=== PATIENT | male | born 1945 | race Caucasian/White ===

== ENCOUNTER 2017-04-22 15:04 | Emergency (ER) | payer OTHER ==
[~2017-04-22] VITALS: Ht 180.3 cm; Wt 66.7 kg
[~2017-04-22 15:04] MED LIST: ACCUNEB SO1.25 MG/1 INH; AMLODIPINE BESY10 MG PO; ASPIR 8181 MG PO; AUGMENTIN 875875 MG PO; AZITHROMYCIN 2250 MG PO; CEFUROXIME250 MG PO; CELEXA20 MG PO; COLACE100 MG PO; COMBIVENT PO; COREG6.25 MG PO; DUONEB 2.5-0.5 M3 ML INH; EFFEXOR 5050 MG/1 T1 PO; IBUPROFEN 200200 M1 PO; IBUPROFEN 400400 M2 PO; ISOSORBIDE MONO30 M1 PO; KLOR-CON 1010 MEQ PO; LASIX 20 MG TAB20 MG PO; LISINOPRIL10 MG PO; MUCINEX TA600 MG/TA2 PO; NEXIUM20 MG PO; NEXIUM40 MG PO; POTASSIUM 25 M25 MEQ PO; PREDNISONE 10 M10 M1 PO; PREDNISONE 10 M10 MG PO; SENNA8.6 MG PO; SIMVASTATIN40 MG PO; SINGULAIR 10 MG10 M1 PO; SYMBICORT160 MCG/4. PO; TESSALON PERLE100 MG PO; TUMS PO; XANAX 0.5 MG0.5 MG PO
[2017-04-22] MEDS ORDERED: TUMS PO (15:30)
[2017-04-22] MEDS ORDERED: NEXIUM40 MG PO (15:30)
[2017-04-22] MEDS ORDERED: AMOXICILLIN 50500 MG PO (15:31)
[2017-04-22] MEDS ORDERED: LASIX 40 MG TAB40 M2 PO (15:31)
[2017-04-22] MEDS ORDERED: CLOTRIMAZOLE10 MG PO (15:31)
[2017-04-22 15:45] LABS: HEMATOCRIT 45.8 % (42.0-52.0); HEMOGLOBIN 15.6 gm/dL (14.0-18.0); MCH 31.5 pg (26.0-34.0); MCHC 34.1 g/dL (28.0-37.0); MCV 92.5 fL (80.0-100.0); MPV 9.2 fl. (7.2-11.1); NUCLEATED RBCS 0 /100WBC; PLATELET COUNT* 199 thou/uL (150-400); RBC 4.95 mil/uL (4.50-6.00); RDW-CV 14.6 % (10.5-14.5); WBC 14.1 thou/uL (4.0-11.0)
[2017-04-22 15:53] LABS: ANION GAP 2 mmol/L (7-16); BUN 14 mg/dL (7-18); CALCIUM 8.7 mg/dL (8.5-10.1); CHLORIDE 98 mmol/L (98-107); CO2 37 mmol/L (21-32); CREATININE 0.7 mg/dL (0.6-1.3); GLUCOSE 105 mg/dL (70-99); POTASSIUM 3.9 mmol/L (3.5-5.1); SODIUM 137 mmol/L (136-145)
[2017-04-22 15:54] LABS: APTT 22.2 Seconds (25.0-31.3); INR 1.1; PROTIME 10.6 Seconds (9.20-11.50)
[2017-04-22 16:00] LABS: ALBUMIN 3.2 g/dL (3.4-5.0); ALKALINE PHOSPHATASE 62 U/L (46-116); SGOT 13 U/L (15-37); SGPT 20 U/L (30-65); TOTAL BILIRUBIN 0.3 mg/dL (<0.1-1.0); TOTAL PROTEIN 6.1 g/dL (6.4-8.2); TROPONIN-I LEVEL <0.06 ng/mL (<0.06)
[2017-04-22 16:15] LABS: ABSOLUTE LYMPHOCYTES 1.1 thou/uL (0.8-5.3); ABSOLUTE MONOCYTES 0.7 thou/uL (0.0-1.2); ABSOLUTE NEUTROPHILS 12.3 thou/uL (1.6-8.1); ATYPICAL LYMPHS 3 %; PLATELET ESTIMATE ADEQUATE
[2017-04-22] MEDS ORDERED: KEFLEX500 M2 PO (17:04)
[2017-04-22] MEDS ORDERED: DIFLUCAN150 MG PO ×2 (17:04→17:10)
[2017-04-22] MEDS ORDERED: MEDROLDOSEPACK PO ×2 (17:04→17:10)
[2017-04-22] MEDS ORDERED: AZITHROMYCIN 2250 MG PO (17:05)
[2017-04-22] MEDS ORDERED: KEFLEX500 M1 PO (17:10)
[2017-04-22 17:21] VITALS: BP 139/71
--- NOTE | 2017-04-23 12:19 | EKG ---
[place] [address] ELECTROCARDIOGRAM REPORT Name: LENNOX PAZ [id number] Admission: 04/22/17 Attend Phys: Discharge: 04/22/17 Date of : 45 Report #: [id number] THIS REPORT FOR: //name// [facility] ED Test Date: 2017-04-22 Test Time: 15:29:53 Pat Name: LENNOX PAZ Department: Room: Gender: [employer]: [facility] : 1945 Requested By: Milton Ji Order Number: [id number] MD: Hunter Marcum Measurements Intervals [place] Rate: 78 P: 71 NC: 152 QRS: 66 QRSD: 112 T: 77 QT: 390 QTc: 445 Interpretive Statements Sinus rhythm Incomplete right bundle branch block Borderline low voltage, extremity leads Compared to ECG 01/10/2016 15:05:29 no change Electronically Signed On 04-23-2017 12:18:45 CDT by Hunter Marcum [email or web address] <ELECTRONICALLY SIGNED> By: Hunter Marcum MD, LOCATED WITHIN [facility] 04/23/17 1218 1529 1529 Hunter Marcum MD, FACC /EPI
== END 2017-04-22 17:23 | disposition home or self-care (01) ==
LOC: M.ERS 15:04
PROVIDERS: Emergency Medicine
DX: J44.1 Chronic obstructive pulmonary disease with (acute) exacerbation (principal); I10 Essential (primary) hypertension; E78.5 Hyperlipidemia, unspecified; I25.10 Atherosclerotic heart disease of native coronary artery without angina pectoris; Z88.1 Allergy status to other antibiotic agents; Z88.6 Allergy status to analgesic agent